=== PATIENT | male | born 2000 | race Two or more races ===

== ENCOUNTER 2022-11-18 22:57 | Emergency (ER) | payer OTHER ==
[~2022-11-18] VITALS: Ht 170.2 cm; Wt 67.6 kg
[2022-11-19] MEDS ORDERED: ZYNCOF 20-400120 ML PO (02:50)
[2022-11-19] MEDS ORDERED: ALBUTEROL2.5 MG/3 M IH (02:50)
[2022-11-19] MEDS ORDERED: BUDESONIDE0.5 MG/2 M IH (02:50)
== END 2022-11-19 02:53 ==
LOC: ER 22:57
DX: J45.909 Unspecified asthma, uncomplicated (principal)

== ENCOUNTER 2023-09-19 06:20 | Outpatient (CLI) | payer OTHER ==
[~2023-09-19 06:20] MED LIST: ALBUTEROL2.5 MG/3 M IH; BUDESONIDE0.5 MG/2 M IH; ZYNCOF 20-400120 ML PO
[2023-09-19 06:42] LABS: URINE APPEARANCE Clear; URINE BILIRRUBIN Negative (NEGATIVE); URINE BLOOD Negative; URINE COLOR Yellow; URINE GLUCOSE Negative (NEGATIVE); URINE LEUKOCYTE Negative; URINE NITRATE Negative; URINE PROTEIN Negative (NEGATIVE); URINE UROBILINOGEN 0.2 E.U./dl
[2023-09-19 06:43] LABS: URINE BACTERIA 8.8 uL (0.0-1933)
[2023-09-19 06:47] LABS: URINE EPITHELIAL CELLS 0.4 uL (0.0-38.8); URINE RBC 0.4 uL (0.0-20.8); URINE WBC 0.1 uL (0.0-23.2)
[2023-09-19 06:55] LABS: HEMATOCRIT 42.8 % (39.0-48.0); HEMOGLOBIN 15.2 g/dL (13-16.00); MEAN CORPUSCULAR HEMOGLOBIN 33.8 pg (27.00-32.0); MEAN CORPUSCULAR HGB CONC 35.5 g/dl (32.0-36.0); PLATELET COUNT 270 K/uL (150-450); RED BLOOD COUNT 4.51 M/uL (4.00-6.00); RED CELL DISTRIBUTION WIDTH 12.4 % (11.5-14.5)
[2023-09-19 07:16] LABS: ALBUMIN 4.5 gm/dL (3.4-5.0); BILIRUBIN TOTAL 1.15 mg/dL (0.3-1.2); CALCIUM 9.7 mg/dL (8.5-10.1); CHOL HDL RATIO 1.7 (0-5.0); CREATININE SERUM 0.79 mg/dL (0.70-1.30); FREE TRIODOTIRONINE 3.43 pg/ml (2.18-3.98); GFR 121.54; POTASSIUM 3.85 mEq/L (3.5-5.1); T4 FREE 1.06 NG/ML (0.76-1.46); TOTAL PROTEIN 7.5 gm/dL (6.4-8.2); TSH 1.97 uIU/mL (0.358-3.74)
== END 2023-09-19 14:03 | disposition home or self-care (01) ==
LOC: LAB 06:20
PROVIDERS: ATTEND Internal Medicine
DX: Z13.1 Encounter for screening for diabetes mellitus (principal); Z13.29 Encounter for screening for other suspected endocrine disorder; Z13.220 Encounter for screening for lipoid disorders; E55.9 Vitamin D deficiency, unspecified

== ENCOUNTER 2023-09-24 10:00 | Outpatient (CLI) | payer OTHER | END 2023-09-24 10:10 | disposition home or self-care (01) | LOC: PPH VACUNA 10:00 | PROVIDERS: ATTEND Emergency Medicine Pediatric Emergency Medicine | DX: Z23 Encounter for immunization (principal) ==

== ENCOUNTER 2024-04-10 13:02 | Outpatient (CLI) | payer OTHER | END 2024-04-10 13:06 | disposition home or self-care (01) | LOC: LAB 13:02 | PROVIDERS: ATTEND Preventive Medicine Occupational Medicine | DX: B19.10 Unspecified viral hepatitis B without hepatic coma (principal) ==

== ENCOUNTER 2024-10-05 10:33 | Outpatient (CLI) | payer OTHER | END 2024-10-05 10:37 | disposition home or self-care (01) | LOC: LAB 10:33 | DX: A64 Unspecified sexually transmitted disease (principal); B19.9 Unspecified viral hepatitis without hepatic coma ==

== ENCOUNTER 2025-07-01 16:15 | Outpatient (CLI) | payer OTHER | END 2025-07-01 16:25 | disposition home or self-care (01) | LOC: PPH VACUNA 16:15 | PROVIDERS: ATTEND Emergency Medicine Pediatric Emergency Medicine | DX: Z23 Encounter for immunization (principal) ==